=== PATIENT | male | born 1970 | race African-American/Black ===

== ENCOUNTER 2021-05-09 13:47 | Inpatient (IN) | payer OTHER ==
[~2021-05-09] VITALS: Ht 170.2 cm; Wt 76.7 kg
--- NOTE | ~2021-05-09 | EEG ---
[facility] [place] [address] [place] [address] ELECTROENCEPHALOGRAM Name: TONI PIMENTEL Room #: 437-P [facility] IN M.R.#: [id number] Admission: 05/09/21 Attend Phys: Collin Xie Discharge: 05/11/21 Date of : 66 Report #: [id number] THIS REPORT FOR: //name// DATE OF SERVICE: 05/09/2021 This patient is being evaluated for the possibility of seizure. EEG was done by placing the electrode by standard 10-20 system of electrode placement. Both referential and sequential montages were used for recording. Background activity in this patient's EEG is about 8 Hz and 30 microvolt. The patient went to sleep and that is associated with bilateral slowing and vertex sharp waves. Photic stimulation is unremarkable. No active epileptiform activity was noticed during this record. IMPRESSION: This patient's EEG does not demonstrate any active epileptiform activity. It is somewhat intermixed with slowing on both sides. There is a nonspecific finding, which can occur with drowsiness, effect of psychotropic medication, dementia, etc. Clinical correlation is recommended. By: [id number] Andreas Blair MD /nt
--- NOTE | ~2021-05-09 | HC ---
[facility] [place] [address] [place] [address] CONSULTATION Name: TONI PIMENTEL Room #: 437-P ADM IN M.R.#: [id number] Admission: 05/09/21 Attend Phys: Collin Luis Discharge: Date of : 66 Report #: [id number] THIS REPORT FOR: cc: FAM - Family physician unknown IGOR - Family physician unknown Andreas Blair MD ~ DATE OF SERVICE: 05/09/2021 HISTORY OF PRESENT ILLNESS: This is a 50-year-old male patient who was seen by me earlier today. I talked to the Emergency Room physician. They had admitted this patient for what they describe as seizure. The patient states that he does not remember anything about this episode. He said he went to [facility] with his coworkers. He started feeling not well. He does not remember anything after that. I had talked to Emergency Room physician. He said the patient had a seizure and became unresponsive. They checked his blood sugar and blood sugar was in 200 and he had hypertension at that time. The patient is feeling back to his baseline when I saw him. REVIEW OF SYSTEMS: Indicate that he said he had a similar episode in 2016, he was admitted to [facility]. He was not put on any medication. He does not know what testing he had undergone. He does take medication for diabetes. He says that he does become hypoglycemic some time. His last hypoglycemia on was Thursday or Thursday and at that time, his blood glucose was 50 according to him. He checks his blood sugar 3 times a day, but does not check his blood pressure on a regular basis. He denies any prior history of stroke, but does not know what episode in 2016 was. That was his relevant 14-point review of system. PAST MEDICAL HISTORY: Positive for similar episode. FAMILY HISTORY: Unremarkable. SOCIAL HISTORY: He says he does not drink any alcohol. He does not smoke. PHYSICAL EXAMINATION: Indicate that he is alert. He is responsive. He can follow simple commands. His speech and concentration and fund of knowledge is at his baseline. 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 His neuromuscular examination is symmetrical. He does not have any cerebellar sign. I could not look at the patient's fundus. Cardiac and respiratory examination is unremarkable. His vision and hearing looks adequate. He does not have any thyroid mass or any carotid bruit. His cardiorespiratory examination is unremarkable. His last blood pressure is 167/100, respirations 13, pulse is 73. LABORATORY DATA: Indicated that his white count was normal, but his GFR was only 40. It was mainly his creatinine that was high. His CT scan does not show [facility] [address] [place] [address] CONSULTATION Name: TONI PIMENTEL Room #: 437-P [facility] IN M.R.#: [id number] Admission: 05/09/21 Attend Phys: Collin Luis Discharge: Date of : 66 Report #: [id number] any acute abnormality. IMPRESSION: The patient does not remember what happened during the spell. I was told by Emergency Room physician that he may have had a seizure, but the patient does not remember anything about this episode. He was not hypoglycemic during this episode. PLAN: Initially, we will do the workup for seizure as well as TIA. He will get an MRI and EEG done. His MRA was also going to be ordered but that was not done. I will also get a carotid Doppler done. He also needs systemic workup including cardiac workup and I will defer that to the hospitalist. We will see what etiology it shows. We will see what he had it done when we get the records from [facility] and then decide about the further management. I discussed with this patient that since he had an episode of unresponsiveness and the loss of memory and since we cannot exclude the possibility of a seizure, then he needs to take seizure precautions for [address] for 6 months because the law says that if he had a seizure or a suspected seizure, he cannot drive for 6 months and similarly he has to take other precautions like not moving on the highs, not going near moving machineries or near fire or any other place where he can hurt himself if he has a seizure. He understood those, but other things we need to do in this patient, we have to await for the initial workup which was ordered and see what that show. Dr. Regalado is going to take over the neurology service tomorrow morning and she will follow this patient with you until Thursday when I will come back if the patient is still there. Thank you very much for this referral. By: 00 553 Andreas Blair MD /nt
[2021-05-09 13:57] VITALS: BP 152/91
[2021-05-09 14:06] LABS: ABSOLUTE NEUTROPHILS 4.1 thou/uL (1.4-8.2); BASOPHILS 1.1 % (0.0-2.0); EOSINOPHILS 1.2 % (0.0-3.0); HEMATOCRIT 42.1 % (42.0-52.0); HEMOGLOBIN 14.1 gm/dL (14.0-18.0); LYMPHOCYTES 18.5 % (24.0-44.0); MCH 30.3 pg (26.0-34.0); MCHC 33.6 g/dL (28.0-37.0); MCV 90.1 fL (80.0-100.0); MONOCYTES 7.5 % (1.0-8.0); PLATELET COUNT 196 thou/uL (150-400); POLYS 71.7 % (36.0-66.0); RBC 4.67 mil/uL (4.50-6.00); WBC 5.7 thou/uL (4.0-11.0)
[2021-05-09 14:19] LABS: ANION GAP 10 mmol/L (7-16); BUN 17 mg/dL (7-18); CALCIUM 9.1 mg/dL (8.5-10.1); CHLORIDE 106 mmol/L (98-107); CO2 27 mmol/L (21-32); CREATININE 1.8 mg/dL (0.7-1.3); GLUCOSE 237 mg/dL (74-106); POTASSIUM 3.6 mmol/L (3.5-5.1); SODIUM 143 mmol/L (136-145)
[2021-05-09 14:30] LABS: ALBUMIN 3.7 g/dL (3.4-5.0); DIRECT BILIRUBIN 0.1 mg/dL (<0.1-0.2); LIPASE 83 U/L (73-393); SALICYLATE < 2.8 mg/dL (2.8-20.0); SGOT 13 U/L (15-37); SGPT 22 U/L (16-63); TOTAL BILIRUBIN 0.7 mg/dL (0.2-1.0); TOTAL PROTEIN 7.6 g/dL (6.4-8.2)
[2021-05-09 14:35] LABS: URINE BILIRUBIN NEGATIVE (Negative); URINE BLOOD 2+ (Negative); URINE CLARITY SL CLOUDY; URINE COLOR YELLOW; URINE GLUCOSE-RANDOM* TRACE (Negative); URINE KETONES NEGATIVE (Negative); URINE PROTEIN (DIPSTICK) TRACE (Negative); URINE SPECIFIC GRAVITY 1.025 (1.005-1.035); URINE UROBILINOGEN 0.2 E.U./dl (0.2-1.0)
[2021-05-09 14:36] LABS: URINE LEUKOCYTES-REFLEX 1+ (Negative); URINE NITRITE-REFLEX POSITIVE (Negative)
[2021-05-09 14:46] LABS: AMP/METHAMP Negative (Negative); BARBITURATES Negative (Negative); BENZODIAZEPINES Negative (Negative); COCAINE Negative (Negative); METHADONE Negative (Negative); OPIATES Negative (Negative); PCP Negative (Negative)
[2021-05-09 15:09] LABS: SQUAMOUS None Seen /LPF (0-3)
[2021-05-09 15:10] LABS: CASTS None Seen /LPF (None Seen); CRYSTALS None Seen /LPF (None Seen); URINE RBC 3-10 Few /HPF (NONE SEEN); URINE WBC-REFLEX >25 Many /HPF (0-5)
[2021-05-09 15:57] LABS: BE(vivo) 0.9 mmol/L (-2 to +3); HCO3 25.5 mmol/L (22.0-26.0); PCO2 40.8 mmHg (35.0-45.0); PO2 82.4 mmHg (80.0-100.0); pH 7.414 (7.360-7.450); sO2 96.3 % (92.0-98.0)
[2021-05-09] MEDS ORDERED: AMLODIPINE BESY10 MG PO (16:45)
[2021-05-09] MEDS ORDERED: FINASTERIDE5 MG PO (16:45)
[2021-05-09] MEDS ORDERED: TAMSULOSIN HCL0.4 MG PO (16:45)
[2021-05-09] MEDS ORDERED: PROTONIX40 M2 PO (16:45)
--- NOTE | 2021-05-09 16:45 | NUR ---
PT GOING TO MRI AT THIS TIME. PT STABLE FOR TRANSFER
[2021-05-09] MEDS ORDERED: AMARYL2 MG PO (16:46)
[2021-05-09 21:58] VITALS: BP 167/100
--- NOTE | 2021-05-09 22:03 | NUR ---
ATTEMPTED TO CALL REPORT, NO ANSWER
[2021-05-09 22:29] VITALS: BP 170/94
[2021-05-10 01:54] LABS: ABSOLUTE NEUTROPHILS 4.2 thou/uL (1.4-8.2); BASOPHILS 0.8 % (0.0-2.0); EOSINOPHILS 2.8 % (0.0-3.0); HEMATOCRIT 38.8 % (42.0-52.0); HEMOGLOBIN 13.2 gm/dL (14.0-18.0); MCH 30.6 pg (26.0-34.0); MONOCYTES 8.7 % (1.0-8.0); PLATELET COUNT 194 thou/uL (150-400); POLYS 63.7 % (36.0-66.0); RBC 4.31 mil/uL (4.50-6.00); RDW 13.1 % (10.5-14.5); WBC 6.6 thou/uL (4.0-11.0)
[2021-05-10 01:58] LABS: CALCIUM 8.4 mg/dL (8.5-10.1); CREATININE 1.4 mg/dL (0.7-1.3); MAGNESIUM 1.9 mg/dL (1.8-2.4); POTASSIUM 3.3 mmol/L (3.5-5.1)
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
--- NOTE | 2021-05-10 09:33 | EKG ---
[address] [place] [address] ELECTROCARDIOGRAM REPORT Name: TONI PIMENTEL Room #: 437-P ADM IN M.R.#: [id number] Admission: 05/09/21 Attend Phys: Collin Luis Discharge: Date of : 66 Report #: [id number] [facility] ED Test Date: 2021-05-09 Test Time: 13:51:21 Pat Name: TONI PIMENTEL Department: Room: 437 Gender: M Supervisor [facility] Laboratory: [facility] : 1970 Requested By: Addy Winters Order Number: [id number] MD: Eder Lo Measurements Intervals Gary Rate: 97 P: 72 NJ: 148 QRS: 81 QRSD: 80 T: 62 QT: 349 QTc: 444 Interpretive Statements Sinus rhythm LVH by voltage ST elevation suggests acute pericarditis No previous ECG available for comparison Electronically Signed On 05-10-2021 9:33:44 CDT by Eder Lo [email or web address] <ELECTRONICALLY SIGNED> By: Eder Lo MD 05/10/21 0933 [id number] 1351 Eder Lo MD /EPI
[2021-05-10 10:04] LABS: FOLIC ACID 10.7 ng/mL (8.6-58.9)
--- NOTE | 2021-05-10 10:23 | NUR ---
ORDERS RECEIVED FOR EVAL AND TREAT. SPOKE WITH Pt WHO STATES HE FEELS HE IS BACK TO BASELINE AND HAS ALREADY BEEN UP WITHOUT DIFFICULTY. Pt DECLINING A FORMAL P.T. EVAL BUT SOUNDS LIKE HE WOULD BE SAFE FOR HOME WHEN MEDICALLY CLEAR
[2021-05-10 11:00] VITALS: BP 152/93
[2021-05-10 11:55] VITALS: BP 152/99
--- NOTE | 2021-05-10 13:01 | NUR ---
OT REVIEWED CHART, SPOKE WITH PT. INTRODUCED ROLE OF OT AND EXPLAINED PURPOSES OF OT IN ACUTE CARE. PT. DECLINES FORMAL OT EVALUATION. PLACING PT. ON D/C LIST.
--- NOTE | 2021-05-10 15:04 | 2DMMODE ---
[facility] [address] [place] [address] 2 D/M-MODE ECHOCARDIOGRAM Name: TONI PIMENTEL Room #: 437-P ADM IN M.R.#: [id number] Admission: 05/09/21 Attend Phys: Collin Luis Discharge: Date of : 66 Report #: [id number] THIS REPORT FOR: cc: FAM - Family physician unknown FAM - Family physician unknown Eder Lo MD ~ APPROVED REPORT Study performed: 05/10/2021 13:10:56 EXAM: Comprehensive 2D, Doppler, and color-flow Echocardiogram Patient Location: Bedside Room #: 437 Status: routine BSA: 1.88 HR: 70 bpm BP: 152/99 mmHg Rhythm: NSR Other Information Study Quality: Good Indications Diabetes Hypertension/HDD 2D Dimensions RVDd: 36.65 mm IVSd: 9.73 (7-11mm) LVOT Diam: 17.98 (18-24mm) LVDd: 45.45 mm PWd: 9.53 (7-11mm) Ascending Ao: 29.28 (22-36mm) LVDs: 32.22 (25-40mm) Left Atrium: 25.53 (27-40mm) Aortic Root: 30.67 mm IVC: 13.00 mm Volumes Left Atrial Volume (Systole) Single Plane 4CH: 20.89 mL Single Plane 2CH: 24.67 mL LA ESV Index: 15.00 mL/m2 Aortic Valve AoV Peak Jarek.: 1.44 m/s AO Peak Gr.: 8.29 mmHg LVOT Max P.05 mmHg LVOT Max V: 1.12 m/s [facility] [address] [address] 2 D/M-MODE ECHOCARDIOGRAM Name: TONI PIMENTEL Room #: 437-P [facility] IN [facility].#: [id number] Admission: 05/09/21 Attend Phys: Collin Mcmillan Discharge: Date of : 66 Report #: [id number] RICHARDSON Vmax: 1.98 cm2 Mitral Valve E/A Ratio: 1.5 MV Decel. Time: 232.70 ms MV E Max Jarek.: 0.74 m/s MV A Jarek.: 0.49 m/s MV PHT: 67.48 ms IVRT: 83.04 ms Pulmonary Valve PV Peak Jarek.: 0.80 m/s PV Peak Gr.: 2.56 mmHg Pulmonary Vein P Vein S: 0.62 m/s P Vein A: 0.17 m/s P Vein D: 0.41 m/s P Vein A Dur.: 83.0 msec P Vein S/D Ratio: 1.51 Left Ventricle The left ventricle is normal size. There is normal LV segmental wall motion. There is normal left ventricular wall thickness. Left ventricular systolic function is normal. The left ventricular ejection fraction is within the normal range. LVEF is 55-60%. The left ventricular diastolic function is normal. Right Ventricle The right ventricle is normal size. The right ventricular systolic function is normal. Atria The left atrium size is normal. The right atrium size is normal. Aortic Valve The aortic valve is normal in structure. No aortic regurgitation is present. There is no aortic valvular stenosis. Mitral Valve The mitral valve is normal in structure. There is no mitral valve regurgitation noted. No evidence of mitral valve stenosis. Tricuspid Valve The tricuspid valve is normal in structure. There is no tricuspid valve regurgitation noted. Pulmonic Valve [facility] [address] [place] [address] 2 D/M-MODE ECHOCARDIOGRAM Name: TONI PIMENTEL Room #: 437-P [facility] IN M.R.#: [id number] Admission: 05/09/21 Attend Phys: Collin Mcmillan Discharge: Date of : 66 Report #: [id number] The pulmonary valve is normal in structure. There is no pulmonic valvular regurgitation. Great Vessels The aortic root is normal in size. IVC is normal in size and collapses >50% with inspiration. Pericardium There is no pericardial effusion. <Conclusion> The left ventricle is normal size. There is normal left ventricular wall thickness. Left ventricular systolic function is normal. The right ventricle is normal size. The left atrium size is normal. The aortic valve is normal in structure. There is no mitral valve regurgitation noted. <ELECTRONICALLY SIGNED> By: Eder Lo MD 05/10/21 1993 [id number] [id number] Eder Lo MD /[facility]
--- NOTE | 2021-05-10 16:13 | NUR ---
ASSUMED CARE OF PT AT 0700 THIS MORNING. PT WAS ADMITTED DUE TO UNRESPONSIVENESS. PT WAS A/OX4, SKIN INTACT, NO TENTING. ASSESSMENTS NOTED IN CHART AND OTHERWISE UNREMARKABLE. PT IS INDEPENDENT AMBULATING, IV IN RT AC WITH NS AT 100ML/HR. CALL LIGHT AND OTHER NEEDS ARE WITHIN REACH. MEDS AND TX GIVEN NEEDED AND SCHEDULED. PT HAS BEEN ASKING ABOUT POSSIBLE DISCHARGING SINCE HE FEELS A LOT BETTER. WILL MONITOR AND NOTE ANY CHANGES.
[2021-05-10 17:28] VITALS: BP 144/86
--- NOTE | 2021-05-10 19:36 | NUR ---
I agree with Johnson ARIAS assessment. Anna Mckinney RN
[2021-05-11 00:06] LABS: GLYCOHEMOGLOBIN (HGB A1C) 8.2 % (4.8-5.6)
[2021-05-11 01:00] VITALS: BP 122/84
--- NOTE | 2021-05-11 05:53 | NUR ---
PT REMAINS ALERT AND ALERT. DENIES ANY DIZZINESS. AFEBRILE. EATING OKAY. VSS.NO S/SX OF DISTRESS.
[2021-05-11 06:36] LABS: ALBUMIN 3.1 g/dL (3.4-5.0); CALCIUM 8.5 mg/dL (8.5-10.1); CREATININE 1.8 mg/dL (0.7-1.3); PHOSPHORUS 4.1 mg/dL (2.6-4.7); POTASSIUM 3.6 mmol/L (3.5-5.1)
--- NOTE | 2021-05-11 07:50 | NUR ---
ASSUMED CARE OF PT AT 0700 HIS MORNING. NO CHANGES TO PT CONDITION SINCE HANDOFF YESTERDAY. CONTINUING CARE AND ASSESSMENTS NOTED IN CHART AND OTHERWISE UNREMARKABLE. PT MAY BE DISCHARGED TODAY IF CLEARED BY HCP. PT IS CONCERNED ABOUT POSSIBLE SEIZURE PROTOCOL DUE TO PT CANNOT LOSE DRIVING PRIVLEDGES. IV IN RT AC SL. PT IS UP AT RIVER. CALL LIGHT AND OHER NEEDS ARE IN REACH. MEDS AND TX GIVEN NEEDED AND SCHEDULED. WILL MONITOR AND NOTE ANY CHANGES.
[2021-05-11 10:33] VITALS: BP 155/100
== END 2021-05-11 12:41 | disposition home or self-care (01) | DRG 312 ==
LOC: ER 13:47 → EROBS 17:08 → 4S 22:32
PROVIDERS: Emergency Medicine; Nurse Practitioner; Psychiatry & Neurology Neurology; Student in an Organized Health Care Education/Training Program; ADMIT Hospitalist; ATTEND Hospitalist
DX: R55 Syncope and collapse (principal); N17.0 Acute kidney failure with tubular necrosis; N39.0 Urinary tract infection, site not specified; I10 Essential (primary) hypertension; E11.9 Type 2 diabetes mellitus without complications; N40.0 Benign prostatic hyperplasia without lower urinary tract symptoms; Z20.822 Contact with and (suspected) exposure to COVID-19; Z88.1 Allergy status to other antibiotic agents; Z88.2 Allergy status to sulfonamides; Z79.899 Other long term (current) drug therapy
CPT/HCPCS: 10100